=== PATIENT | male | born 1965 | race Caucasian/White ===

== ENCOUNTER 2020-10-27 06:10 | Emergency (ER) | payer OTHER ==
[~2020-10-27] VITALS: Ht 177.8 cm; Wt 95.3 kg
[2020-10-27] MEDS ORDERED: METFORMIN HCL500 M3 (06:25)
[2020-10-27] MEDS ORDERED: ZESTRIL10 M1 (06:25)
[2020-10-27] MEDS ORDERED: ULTRAM50 MG PO (12:20)
[2020-10-27] MEDS ORDERED: TAMS0.4C PO (12:20)
[2020-10-27] MEDS ORDERED: PYRIDIUM DS200 MG PO (12:20)
[2020-10-27] MEDS ORDERED: SKELAGESIC PO (12:20)
== END 2020-10-27 12:46 ==
LOC: ER 06:10
DX: N13.2 Hydronephrosis with renal and ureteral calculous obstruction (principal); R10.31 Right lower quadrant pain; R11.2 Nausea with vomiting, unspecified; R61 Generalized hyperhidrosis